=== PATIENT | female | born 1995 | race Caucasian/White ===

== ENCOUNTER 2021-05-23 12:15 | Emergency (ER) | payer OTHER ==
[2021-05-23 12:26] VITALS: BP 118/73
[2021-05-23] MEDS ORDERED: MAG HYDROX/AL HYDROX/SIMETH 30 ML UDC PO STA (12:54)
[2021-05-23] MEDS ORDERED: TETANUS/DIPHTHERIA/PERTUSSIS 0.5 ML SYRINGE IM ONE (12:54)
[2021-05-23] MEDS ORDERED: LIDOCAINE VISCOUS 2% 15 ML UDC MM STA (12:54)
--- NOTE | 2021-05-23 12:56 | ED Physician Documentation ---
History of Present Illness - Stated complaint Stated Complaint: PARK ON TONGUE - Chief complaint Chief Complaint: Burn - History obtained from History obtained from: Patient - Additonal information Additional information: 25-year-old woman with unknown tetanus status drank excessively hot coffee at work yesterday around noon and now has severe intraoral pain with difficulty eating and drinking. Review of Systems Constitutional: reports: Reviewed and negative Eyes: reports: Reviewed and negative Ears: reports: Reviewed and negative Nose: reports: Reviewed and negative Throat: reports: Reviewed and negative Cardiac: reports: Reviewed and negative PD PAST MEDICAL HISTORY - Past Medical History Past Medical History: No - Present Medications Home Medications: Ambulatory Orders Medication Instructions Recorded Confirmed Magic Mouthwash 5 ml PO Q4H PRN #200 ml 05/23/21 - Allergies Allergies/Adverse Reactions: Allergies Allergy/AdvReac Type Severity Reaction Status Date / Time No Known Drug Allergies Allergy Verified 05/23/21 12:26 - Social History Does the pt smoke?: No Smoking Status: Never smoker Does the pt drink ETOH?: No Does the pt have substance abuse?: No - Immunizations Immunizations are current?: Yes - POLST Patient has POLST: No PD ED PE NORMAL - Vitals Vital signs reviewed: Yes - General General: Alert and oriented X 3, No acute distress - HEENT HEENT: Other (Some sloughing of the mucosa on the soft palate and posterior of the tongue) - Neck Neck: Supple, no meningeal sign, No bony TTP - Neuro Neuro: Alert and oriented X 3, Normal speech Results - Vitals Vitals: Vital Signs - 24 hr 05/23/21 12:23 Temperature 36.5 C Heart Rate 69 Respiratory 14 Rate Blood Pressure 118/73 O2 Saturation 99 Oxygen O2 Source Room air Departure - Departure Disposition: 01 Home, Self Care Clinical Impression: Burn of oral mucosa Condition: Good Record reviewed to determine appropriate education?: Yes Instructions: ED Burn D 2nd Prescriptions: Magic Mouthwash 5 ml PO Q4H PRN #200 ml PRN Reason: Pain
== END 2021-05-23 13:32 | disposition home or self-care (01) ==
LOC: ED 12:15
DX: T28.0XXA Burn of mouth and pharynx, initial encounter (principal); X10.1XXA Contact with hot food, initial encounter; Y93.89 Activity, other specified; Z23 Encounter for immunization
CPT/HCPCS: 90471; 90715; 99283; A9270; 1040M

== ENCOUNTER 2021-07-08 10:04 | Emergency (ER) | payer OTHER ==
[2021-07-08 11:00] LABS: BILIRUBIN,URINE NEGATIVE (NEGATIVE); GLUCOSE, URINE (UA) NEGATIVE (NEGATIVE); KETONES,URINE (UA) NEGATIVE (NEGATIVE); LEUKOCYTE ESTERASE, URINE NEGATIVE (NEGATIVE); NITRITE,URINE NEGATIVE (NEGATIVE); OCCULT BLOOD,URINE NEGATIVE (NEGATIVE); PROTEIN,URINE NEGATIVE (NEGATIVE); UROBILINOGEN,URINE 0.2 (NORMAL) E.U./dL (NORMAL)
[2021-07-08 11:06] LABS: BASOPHILS % (AUTO) 0.7 %; EOSINOPHILS % (AUTO) 0.9 %; HCT - HEMATOCRIT 40.9 % (37.0-47.0); HGB - HEMOGLOBIN 13.7 g/dL (12.0-16.0); LYMPHOCYTES # (AUTO) 1.6 10^3/uL (1.5-3.5); LYMPHOCYTES % (AUTO) 37.4 %; MEAN CORPUSCULAR HEMOGLOBIN 31.8 pg (27.0-31.0); MEAN CORPUSCULAR HGB CONC 33.5 g/dL (32.0-36.0); MEAN CORPUSCULAR VOLUME 94.9 fL (81.0-99.0); MONOCYTES # (AUTO) 0.5 10^3/uL (0.0-1.0); MONOCYTES % (AUTO) 12.4 %; NEUTROPHILS # (AUTO) 2.1 10^3/uL (1.5-6.6); NEUTROPHILS % (AUTO) 48.4 %; PLT - PLATELET COUNT 266 10^3/uL (130-450); RED BLOOD COUNT 4.31 10^6/uL (4.20-5.40); WHITE BLOOD COUNT 4.3 x10^3/uL (4.8-10.8)
[2021-07-08 11:15] LABS: ALBUMIN 4.5 g/dL (3.2-5.5); ALBUMIN/GLOBULIN RATIO 1.3 (1.0-2.2); BILIRUBIN,TOTAL 1.2 mg/dL (0.2-1.0); CALCIUM 9.2 mg/dL (8.5-10.3); CREATININE 0.6 mg/dL (0.4-1.0); POTASSIUM 3.5 mmol/L (3.5-5.0)
[2021-07-08 11:15] LABS: CLARITY,URINE CLEAR (CLEAR)
[2021-07-08] MEDS ORDERED: SODIUM CHLORIDE 0.9% 1,000 ML IV STA (12:00)
[2021-07-08] MEDS ORDERED: KETOROLAC 30 MG/ML VIAL IVP STA (12:00)
--- NOTE | 2021-07-08 12:02 | ED Physician Documentation ---
PD HPI ABD PAIN - Stated complaint Stated Complaint: ABD PX - Chief complaint Chief Complaint: Abd Pain - History obtained from History obtained from: Patient - History of Present Illness Timing - onset: Enter time (0800), Yesterday Timing - duration: Days (1) Timing - details: Abrupt onset, Still present Quality: Sharp, Pain Location: RLQ, LLQ Radiation: Right flank Improved by: Laying still Worsened by: Moving, Position, Palpation Associated symptoms: Constipation. No: Nausea, Vomiting Similar symptoms before: Diagnosis (endometriosis) Recently seen: Clinic - Additional information Additional information: 26-year-old female with a prior history of endometriosis has developed a pain symptom yesterday morning on awakening. She has pain in the right lower quadrant radiating up her right side to her flank. She has pain with movement she is not able to stand up straight. She does have some issue with constipation and diarrhea and she has had a surgery done to have her uterus removed as well as her fallopian tubes and her appendix. Since her operation she has not had issues with pain like this. She does live with a constant pain of about 5. Review of Systems Constitutional: denies: Fever Eyes: denies: Decreased vision Ears: denies: Ear pain Nose: denies: Congestion Throat: denies: Sore throat Cardiac: denies: Chest pain / pressure, Palpitations Respiratory: denies: Dyspnea, Cough GI: reports: Abdominal Pain, Nausea, Constipation, Diarrhea : denies: Dysuria, Frequency Skin: denies: Rash Musculoskeletal: denies: Neck pain, Back pain, Extremity pain Neurologic: denies: Generalized weakness, Focal weakness, Numbness PD PAST MEDICAL HISTORY - Past Surgical History Past Surgical History: No - Present Medications Home Medications: Ambulatory Orders Medication Instructions Recorded Confirmed Norethindrone Acetate 5 mg DAILY 07/08/21 07/08/21 - Allergies Allergies/Adverse Reactions: Allergies Allergy/AdvReac Type Severity Reaction Status Date / Time No Known Drug Allergies Allergy Verified 07/08/21 10:17 - Social History Does the pt smoke?: No Smoking Status: Never smoker Does the pt drink ETOH?: No Does the pt have substance abuse?: No - Immunizations Immunizations are current?: Yes - POLST Patient has POLST: No PD ED PE NORMAL - Vitals Vital signs reviewed: Yes (normal ) - General General: Alert and oriented X 3, No acute distress, Well developed/nourished - HEENT HEENT: Atraumatic, PERRL, EOMI - Neck Neck: Supple, no meningeal sign, No bony TTP - Cardiac Cardiac: RRR, No murmur - Respiratory Respiratory: No respiratory distress, Clear bilaterally - Abdomen Abdomen: Normal bowel sounds, Soft, Non distended, No organomegaly, Other (mild lower abdominal tenderness without garding ) - Back Back: No CVA TTP, No spinal TTP - Derm Derm: Normal color, Warm and dry, No rash - Extremities Extremities: No deformity, No edema - Neuro Neuro: Alert and oriented X 3, 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, No motor deficit, No sensory deficit, Normal speech Eye Opening: Spontaneous Motor: Obeys Commands Verbal: Oriented GCS Score: 15 - Psych Psych: Normal mood, Normal affect Results - Vitals Vitals: Vital Signs - 24 hr 07/08/21 07/08/21 07/08/21 10:14 12:17 14:00 Temperature 36.2 C L 36.5 C Heart Rate 77 78 64 Respiratory 16 16 14 Rate Blood Pressure 112/71 114/68 118/82 H O2 Saturation 97 98 98 Oxygen O2 Source Room air - Labs Labs: Laboratory Tests 07/08/21 07/08/21 07/08/21 10:50 10:52 10:52 WBC 4.3 L RBC 4.31 Hgb 13.7 Hct 40.9 MCV 94.9 MCH 31.8 H MCHC 33.5 RDW 12.0 Plt Count 266 MPV 9.0 Neut # (Auto) 2.1 Lymph # (Auto) 1.6 Loving # (Auto) 0.5 Eos # (Auto) 0.0 Baso # (Auto) 0.0 Absolute Nucleated RBC 0.00 Nucleated RBC % 0.0 Sodium 137 Potassium 3.5 Chloride 104 Carbon Dioxide 22 Anion Gap 11.0 BUN 15 Creatinine 0.6 Estimated GFR (MDRD) 122 Glucose 86 Calcium 9.2 Total Bilirubin 1.2 H AST 17 ALT 14 Alkaline Phosphatase 44 Total Protein 8.0 Albumin 4.5 Globulin 3.5 Albumin/Globulin Ratio 1.3 Lipase 45 Urine Color YELLOW Urine Clarity CLEAR Urine pH 7.0 Ur Specific [place] 1.020 Urine Protein NEGATIVE Urine Glucose (UA) NEGATIVE Urine Ketones NEGATIVE Urine Occult Blood NEGATIVE Urine Nitrite NEGATIVE Urine Bilirubin NEGATIVE Urine Urobilinogen 0.2 (NORMAL) Ur Leukocyte Esterase NEGATIVE Ur Microscopic Review NOT INDICATED Urine Culture Comments NOT INDICATED - Rads (name of study) CT ab pel Radiology: Prelim report reviewed (Impression: 1. No acute abdominal or pelvic abnormality. Constipation.), EMP read indepedently (Lots of stool throughout with colonic distention ), See rad report PD MEDICAL DECISION MAKING - ED course Complexity details: reviewed results, re-evaluated patient, considered differential ED course: 26-year-old female with a history of endometriosis comes in today with lower abdominal pressure and pain that is mounted and worse than she has had since she has had her surgery years ago. I considered the possibility of a endometrial flare and I considered the possibility of ovarian torsion but the patient's pain was not exquisite exam was not remarkable we did obtain CT exam which is very revealing of the nature of the patient's problem. She has excessive stool, dilation of the colon every cut of the scan. Departure - Departure Disposition: 01 Home, Self Care Clinical Impression: Constipation Qualifiers: Constipation type: unspecified constipation type Qualified Code(s): K59.00 - Constipation, unspecified Condition: Stable Instructions: ED Constipation Follow-Up: Chai Rubio MD [Primary Care Provider] - Comments: Marjan, today in the emergency department we found that you were significantly constipated. There is a bit of colonic dilation associated with this which is likely chronic and a way to combat this is to empty your colon with the use of s timulant laxative and enema if necessary. Following that it is recommended to use a regular dose of MiraLAX for several months to retrain your colon. Discharge Date/Time: 07/08/21 14:00
[2021-07-08] MEDS ORDERED: IOVERSOL 320 100 ML VIAL IVP ONE ×2 (12:42→15:09)
--- NOTE | 2021-07-08 13:26 | CT Report ---
PROCEDURE: Abdomen/Pelvis W INDICATIONS: RLQ pain no appendix LLQ pain CONTRAST: IV CONTRAST: Optiray 320 ml: 90 PO CONTRAST: *NO PO CONTRAST TECHNIQUE: After the administration of contrast, 5 mm thick sections acquired from the diaphragms to the sym physis. 5 mm thick coronal and sagittal reformats were acquired. For radiation dose reduction, the following was used: automated exposure control, adjustment of mA and/or kV according to patient size . COMPARISON: None. FINDINGS: Image quality: Excellent. ABDOMEN: Lung bases: Lung bases are clear. Heart size is normal. Solid organs: Liver: The liver has no mass or intrahepatic biliary ductal dilatation. The portal vein and hepatic v eins are patent.[] Biliary: Status post cholecystectomy.[] Pancreas: The pancreas has no mass or ductal dilatation. No surrounding inflammation.[] Spleen: Normal size. No mass.[] Adrenal glands: No hypertrophy or nodules.[] Kidneys: No obstructive calculus or hydronephrosis. No solid mass. No cystic mass.[] Bowel: The distal esophagus and stomach are normal. The small bowel has a normal caliber and appearan ce. The terminal ileum is normal. The large bowel has increased stool throughout consistent with cons tipation. No focal wall thickening or surrounding inflammation.[] Status post appendectomy. Free air/free fluid: No free air or free fluid.[] Abdominal wall: No abdominal wall mass or hernia.[] Retroperitoneum: No retroperitoneal or mesenteric adenopathy by size criteria. Aorta and inferior srikanth a cava are normal in size.[] Lymph nodes: No adenopathy.[] Bones: No suspicious bony lesions. No vertebral body compression fractures.[] PELVIS: Genitourinary: [Bladder wall thickness is normal. ][] Miscellaneous: [No inguinal hernias or adenopathy. ][] Bones: [No suspicious bony lesions. No vertebral body compression fractures. ][] IMPRESSION: 1. No acute abdominal or pelvic abnormality. 2. Constipation. Reviewed by: Eddi Evans on 07/08/2021 1:24 PM PDT Approved by: Eddi Evans on 07/08/2021 1:24 PM PDT Station ID: [id number]
[2021-07-08 14:00] VITALS: BP 118/82
== END 2021-07-08 14:00 | disposition home or self-care (01) ==
LOC: ED 10:04
DX: K59.00 Constipation, unspecified (principal)
CPT/HCPCS: 36415; 74177; 80053; 81003; 83690; 85025; 96361; 96374; 99282; 99284; Q9967; 81001; 87086

== ENCOUNTER 2021-08-07 13:00 | Outpatient (CLI) | payer OTHER | END 2021-08-07 23:59 | disposition home or self-care (01) | LOC: LAB.N 13:00 | PROVIDERS: ATTEND Nurse Practitioner | DX: J32.9 Chronic sinusitis, unspecified (principal); R05.9 Cough, unspecified; Z20.822 Contact with and (suspected) exposure to COVID-19 | CPT/HCPCS: 87070 ==

== ENCOUNTER 2023-06-22 08:00 | Outpatient (CLI) | payer OTHER | END 2023-06-22 23:59 | disposition home or self-care (01) | LOC: LAB.N 08:00 | PROVIDERS: ATTEND Registered Nurse | DX: R21 Rash and other nonspecific skin eruption (principal) | CPT/HCPCS: 87252 ==

== ENCOUNTER 2023-12-10 12:45 | Outpatient (CLI) | payer OTHER ==
--- NOTE | 2023-12-10 15:34 | XRAY Report ---
PROCEDURE: Finger(s) RT INDICATIONS: PAIN IN RIGHT WRIST TECHNIQUE: AP hand, 2 views of the first finger(s) acquired. COMPARISON: None. FINDINGS: Bones: No fractures or dislocations. No suspicious bony lesions. Soft tissues: No suspicious soft tissue calcifications or masses. IMPRESSION: No acute bony abnormality. Reviewed by: Horacio Murphy MD on 12/10/2023 3:33 PM RUST Approved by: Horacio Murphy MD on 12/10/2023 3:33 PM RUST Station ID: [id number]
--- NOTE | 2023-12-10 15:34 | XRAY Report ---
PROCEDURE: Wrist 3+V RT INDICATIONS: PAIN IN RIGHT WRIST TECHNIQUE: 4 views of the wrist were acquired. COMPARISON: None. FINDINGS: Bones: No fractures or dislocations. No suspicious bony lesions. Soft tissues: No suspicious soft tissue calcifications or masses. IMPRESSION: No acute bony abnormality. Reviewed by: Horacio Murphy MD on 12/10/2023 3:33 PM PST Approved by: Horacio Murphy MD on 12/10/2023 3:33 PM RUST Station ID: [id number]
== END 2023-12-10 13:00 | disposition home or self-care (01) ==
LOC: DI.N 12:45
PROVIDERS: ATTEND Physician Assistant Medical
DX: M25.531 Pain in right wrist (principal)

== ENCOUNTER 2023-12-29 12:29 | Emergency (ER) | payer OTHER ==
--- NOTE | 2023-12-29 12:46 | ED Physician Documentation ---
PD HPI URI - History obtained from History obtained from: Patient <TahirKris Yoon - Last Filed: 12/29/23 12:44> - History obtained from History obtained from: Patient <Aj Andrews - Last Filed: 12/29/23 13:59> - Stated complaint Stated Complaint: SOA/COUGH/FEVER - Chief complaint Chief Complaint: Resp - Additional information Additional information: This is a 28-year-old with history of POTS, Rita-Danlos syndrome, who has been sick for about 5 days with productive cough, shortness of breath and fever up to 101.5 at home last night. 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 - Social History Does the pt smoke?: No Smoking Status: Never smoker Does the pt drink ETOH?: No Does the pt have substance abuse?: No - Immunizations Immunizations are current?: Yes - POLST Patient has POLST: No <Kris Haro - Last Filed: 12/29/23 12:44> <Aj Andrews - Last Filed: 12/29/23 13:59> - Present Medications Home Medications: Ambulatory Orders Medication Instructions Recorded Confirmed Norethindrone Acetate 5 mg DAILY 07/08/21 07/08/21 Amoxicillin 2 tab PO TID #30 cap 12/29/23 Benzonatate [Tessalon] 200 mg PO TID PRN #20 cap 12/29/23 guaiFENesin/CODEINE [Robitussin AC] 5 - 10 ml PO Q6H PRN #120 ml 12/29/23 - Allergies Allergies/Adverse Reactions: Allergies Allergy/AdvReac Type Severity Reaction Status Date / Time erythromycin base Allergy Nausea Verified 12/29/23 12:33 PD ED PE NORMAL - Vitals Vital signs reviewed: Yes - General General: Alert and oriented X 3, No acute distress - HEENT HEENT: Pharynx benign - Cardiac Cardiac: RRR, No murmur - Respiratory Respiratory: No respiratory distress, Other (Focal right basilar rhonchi and frequent coughing) - Abdomen Abdomen: Non tender - Neuro Neuro: Alert and oriented X 3 <Aj Andrews - Last Filed: 12/29/23 13:59> Results - Vitals Vitals: Vital Signs - 24 hr 12/29/23 12/29/23 12:33 13:25 Temperature 36.8 C Heart Rate 110 H 111 H Respiratory 22 20 Rate Blood Pressure 126/82 H 124/88 H O2 Saturation 98 92 Oxygen O2 Source Room air - Labs Labs: Laboratory Tests 12/29/23 12:32 Nasal Adenovirus (PCR) NOT DETECTED Nasal B. parapertussis DNA (PCR) NOT DETECTED Nasal Coronavir 229E PCR NOT DETECTED Nasal Coronavir HKU1 PCR NOT DETECTED Nasal Coronavir NL63 PCR NOT DETECTED Nasal Coronavir OC43 PCR NOT DETECTED Nasal Enterovir/Rhinovir PCR NOT DETECTED Nasal Influenza B PCR NOT DETECTED Nasal Influenza A PCR NOT DETECTED Nasal Parainfluen 1 PCR NOT DETECTED Nasal Parainfluen 2 PCR NOT DETECTED Nasal Parainfluen 3 PCR NOT DETECTED Nasal Parainfluen 4 PCR NOT DETECTED Nasal RSV (PCR) NOT DETECTED Nasal B.pertussis DNA PCR NOT DETECTED Nasal C.pneumoniae (PCR) NOT DETECTED Gennaro Human Metapneumo PCR NOT DETECTED Nasal M.pneumoniae (PCR) NOT DETECTED Nasal SARS-CoV-2 (PCR) NOT DETECTED PD Medical Decision Making - ED course Complexity details: reviewed results, considered differential (viral syndrome/bronchitis/pna) <Kris Haro - Last Filed: 12/29/23 12:44> <Aj Andrews - Last Filed: 12/29/23 13:59> - ED course ED course: Clinically has right lower lobe pneumonia. [employer] respiratory panel negative. Treated with amoxicillin, codeine and Tessalon. She appears well and nontoxic. (Aj Andrews) Departure <Kris Haro - Last Filed: 12/29/23 12:44> - Departure Record reviewed to determine appropriate education?: Yes <Aj Andrews - Last Filed: 12/29/23 13:59> - Departure Disposition: 01 Home, Self Care Clinical Impression: Pneumonia Qualifiers: Pneumonia type: due to unspecified organism Laterality: right Lung location: lower lobe of lung Qualified Code(s): J18.9 - Pneumonia, unspecified organism Condition: Good Instructions: ED Pneumonia Adult Prescriptions: Amoxicillin 2 tab PO TID #30 cap guaiFENesin/CODEINE [Robitussin AC] 5 - 10 ml PO Q6H PRN #120 ml PRN Reason: Cough Benzonatate [Tessalon] 200 mg PO TID PRN #20 cap PRN Reason: Cough Comments: It does not like you have pneumonia at the right base clinically. I am prescribing antibiotics and medication for cough and sent that to the [facility] in [place]. Do not drink or drive while taking codeine containing cough syrup. Return for new or worsening symptoms. Forms: PCP List Discharge Date/Time: 12/29/23 13:34
[2023-12-29 13:27] VITALS: BP 124/88; O2SAT 92
[2023-12-29 13:42] LABS: B. PARAPERTUSSIS- RESP PCR PAN NOT DETECTED; B. PERTUSSIS- RESP PCR PANEL NOT DETECTED; C. PNEUMONIAE- RESP PCR PANEL NOT DETECTED; CORONAVIRUS 229E-RESP PCR NOT DETECTED; CORONAVIRUS HKU1-RESP PCR NOT DETECTED; CORONAVIRUS NL63-RESP PCR NOT DETECTED; CORONAVIRUS OC43-RESP PCR NOT DETECTED; HUMAN METAPNEUMOVIRUS NOT DETECTED; INFLUENZA A- RESP PCR PANEL NOT DETECTED; INFLUENZA B - RESP PCR PANEL NOT DETECTED; M. PNEUMONIAE- RESP PCR PANEL NOT DETECTED; PARAINFLUENZA VIRUS 1 NOT DETECTED; PARAINFLUENZA VIRUS 2 NOT DETECTED; PARAINFLUENZA VIRUS 3 NOT DETECTED; PARAINFLUENZA VIRUS 4 NOT DETECTED; RHINOVIRUS/ENTEROVIRUS NOT DETECTED; RSV- RESP PCR PANEL NOT DETECTED; SARS-CoV-2 -RESP PCR PANEL NOT DETECTED
== END 2023-12-29 13:34 | disposition home or self-care (01) ==
LOC: ED 12:29
DX: J18.9 Pneumonia, unspecified organism (principal); G90.A Postural orthostatic tachycardia syndrome [POTS]; Q79.60 Ehlers-Danlos syndrome, unspecified
CPT/HCPCS: 87633; 99283

== ENCOUNTER 2024-01-06 07:30 | Outpatient (CLI) | payer OTHER ==
--- NOTE | 2024-01-06 10:42 | XRAY Report ---
PROCEDURE: Chest 2V INDICATIONS: PNEUMONIA TECHNIQUE: 2 views of the chest were acquired. COMPARISON: None. FINDINGS: Surgical changes and devices: None. Lungs and pleura: No pleural effusions or pneumothorax. Moderate-sized airspace opacity in left lung base is seen. Mediastinum: Mediastinal contours appear normal. Heart size is normal. Bones and chest wall: No suspicious bony lesions. Overlying soft tissues appear unremarkable. IMPRESSION: Finding is suggestive of moderate sized left lower lobe infiltrate. No significant pleural effusion. No pneumothorax. Reviewed by: Harley Valenzuela MD on 01/06/2024 10:40 AM PDT Approved by: Harley Valenzuela MD on 01/06/2024 10:40 AM PDT Station ID: [id number]
== END 2024-01-06 07:45 | disposition home or self-care (01) ==
LOC: DI.N 07:30
PROVIDERS: ATTEND Physician Assistant Medical
DX: J18.9 Pneumonia, unspecified organism (principal)

== ENCOUNTER 2024-01-21 14:00 | Outpatient (CLI) | payer OTHER ==
--- NOTE | 2024-01-21 20:33 | XRAY Report ---
PROCEDURE: Chest 2V INDICATIONS: PNEUMONIA TECHNIQUE: 2 views of the chest were acquired. COMPARISON: Chest x-ray 01/06/2024 FINDINGS: Surgical changes and devices: None. Lungs and pleura: Interval resolution of left lower lobe opacity. Mediastinum: Mediastinal contours appear normal. Heart size is normal. Bones and chest wall: No suspicious bony lesions. Overlying soft tissues appear unremarkable. IMPRESSION: No acute cardiopulmonary process. Reviewed by: Susan Santiago MD on 01/21/2024 8:32 PM PDT Approved by: Susan Santiago MD on 01/21/2024 8:32 PM PDT Station ID: [id number]
== END 2024-01-21 14:15 | disposition home or self-care (01) ==
LOC: DI.N 14:00
PROVIDERS: ATTEND Physician Assistant Medical
DX: J18.9 Pneumonia, unspecified organism (principal); R07.9 Chest pain, unspecified

== ENCOUNTER 2024-01-29 10:19 | Outpatient (CLI) | payer OTHER ==
--- NOTE | 2024-01-29 11:45 | XRAY Report ---
PROCEDURE: Chest 2V INDICATIONS: Pneumonia, unspecified organism TECHNIQUE: 2 views of the chest were acquired. COMPARISON: Chest x-ray 01/21/2024 FINDINGS: Surgical changes and devices: None. Lungs and pleura: No pleural effusions or pneumothorax. Lungs are clear. Mediastinum: Mediastinal contours appear normal. Heart size is normal. Bones and chest wall: No suspicious bony lesions. Overlying soft tissues appear unremarkable. IMPRESSION: No acute cardiopulmonary process. Reviewed by: Susan Santiago MD on 01/29/2024 11:44 AM PDT Approved by: Susan Santiago MD on 01/29/2024 11:44 AM PDT Station ID: [id number]
== END 2024-01-29 10:20 | disposition home or self-care (01) ==
LOC: DI.N 10:19
PROVIDERS: ATTEND Nurse Practitioner Family
DX: J18.9 Pneumonia, unspecified organism (principal)